=== PATIENT | female | born 1985 | race Two or more races ===

== ENCOUNTER 2020-01-05 15:35 | Inpatient (IN) | payer OTHER ==
[~2020-01-05] VITALS: Ht 157.5 cm; Wt 65.3 kg
[2020-01-05] MEDS ORDERED: PREN-217 PO (16:12)
[2020-01-05 16:26] VITALS: BP 114/63
[2020-01-05] MEDS ORDERED: RINGERS SOLUTION,LACTATED 1,000 ML IV ONE ×2 (17:17→18:33)
[2020-01-05] MEDS ORDERED: RINGERS SOLUTION,LACTATED 1,000 ML IV SCH (18:00)
[2020-01-05] MEDS: RINGERS SOLUTION,LACTATED 1,000 ML IV SCH ×2 (18:03→18:04)
[2020-01-05] MEDS ORDERED: FentaNYL CITRATE-PF 100 MCG/2 ML VIAL ONE (18:38)
[2020-01-05] MEDS ORDERED: MORPHINE SULFATE/PF 0.5 MG/ML 10 ML AMP ONE (18:39)
[2020-01-05] MEDS ORDERED: BUPIVACAINE HCL/DEX-WATER/PF 0.75% 2 ML AMP ONE (18:39)
[2020-01-05] MEDS ORDERED: ACETAMINOPHEN 1000 MG/ISO-OSM 100 ML IV ONE (18:39)
[2020-01-05] MEDS ORDERED: METOCLOPRAMIDE HCL 5 MG/ML 2 ML VIAL IVP ONE (18:45)
[2020-01-05] MEDS ORDERED: CITRIC ACID/SODIUM CITRATE 30 ML SOLUTION UDCUP PO ONE (18:45)
[2020-01-05 19:08] VITALS: BP 110/61
[2020-01-05 19:13] LABS: BASOPHILS % (AUTO) 0.8 % (0.0-2.0); EOSINOPHILS % (AUTO) 0.1 % (1.0-6.0); LYMPHOCYTES # (AUTO) 2.5 K/uL (1.0-4.8); LYMPHOCYTES % (AUTO) 23.2 % (22.0-44.0); MEAN CORPUSCULAR HEMOGLOBIN 24.7 pg (26.0-34.0); MEAN CORPUSCULAR HGB CONC 32.3 G/dL (31.0-37.0); MEAN CORPUSCULAR VOLUME 77 fL (80-100); MONOCYTES # (AUTO) 0.6 K/uL (0.1-1.0); MONOCYTES % (AUTO) 5.9 % (2.0-9.0); NEUTROPHILS # (AUTO) 7.4 K/uL (1.8-7.7); PLATELET COUNT (AUTO)-OB 341 K/uL (150-450); RED BLOOD CELL COUNT(AUTO) 4.44 MIL/uL (4.00-5.20); RED CELL DISTRIBUTION WIDTH 16.8 % (11.5-14.5)
[2020-01-05] MEDS ORDERED: DiphenhydrAMINE HCL 50 MG/ML VIAL IVP PRN ×2 (20:00→20:15)
[2020-01-05] MEDS ORDERED: OXYGEN THERAPY IH SCH (20:00)
[2020-01-05] MEDS ORDERED: ONDANSETRON HCL 4 MG/2 ML VIAL IVP PRN ×2 (20:00→20:15)
[2020-01-05] MEDS ORDERED: DEXAMETHASONE SOD PHOS 4 MG/ML VIAL IVP PRN (20:00)
[2020-01-05] MEDS ORDERED: MORPHINE SULFATE 10 MG/ML SYRINGE IVP PRN (20:15)
[2020-01-05] MEDS ORDERED: FentaNYL CITRATE-PF 100 MCG/2 ML VIAL IVP PRN (20:15)
[2020-01-05] MEDS ORDERED: NALOXONE HCL 0.4 MG/ML VIAL IVP PRN (20:15)
[2020-01-05] MEDS ORDERED: GUM MASTIC/STORAX/MSAL/ALCOHOL LIQUID 0.67 ML VIAL TP ONE (20:28)
[2020-01-05] MEDS ORDERED: LANOLIN 7 GM OINTMENT TP PRN (23:30)
[2020-01-06] MEDS: RINGERS SOLUTION,LACTATED 1,000 ML IV SCH ×2 (03:20→12:20)
[2020-01-06] MEDS: ACETAMINOPHEN 1000 MG/ISO-OSM 100 ML IV SCH ×2 (03:21→09:20)
[2020-01-06] MEDS ORDERED: OXYTOCIN 10 UNITS/ML VIAL IM ONE (05:44)
[2020-01-06] MEDS ORDERED: ONDANSETRON HCL 4 MG/2 ML VIAL IVP ONE (05:44)
[2020-01-06] MEDS ORDERED: 0.9% SODIUM CHLORIDE 10 ML VIAL IVP ONE (05:44)
[2020-01-06] MEDS ORDERED: EPHEDrine SULFATE 50 MG/ML VIAL IM ONE (05:44)
[2020-01-06 07:01] LABS: BASOPHILS % (AUTO) 0.2 % (0.0-2.0); EOSINOPHILS % (AUTO) 0.2 % (1.0-6.0); HEMATOCRIT 28.4 % (36-46); HEMOGLOBIN 9.4 g/dL (12.0-16.0); LYMPHOCYTES # (AUTO) 1.9 K/uL (1.0-4.8); LYMPHOCYTES % (AUTO) 18.8 % (22.0-44.0); MEAN CORPUSCULAR HEMOGLOBIN 25.3 pg (26.0-34.0); MEAN CORPUSCULAR VOLUME 77 fL (80-100); MONOCYTES # (AUTO) 0.7 K/uL (0.1-1.0); MONOCYTES % (AUTO) 6.4 % (2.0-9.0); NEUTROPHILS # (AUTO) 7.7 K/uL (1.8-7.7); NEUTROPHILS % (AUTO) 74.4 % (40.0-70.0); PLATELET COUNT (AUTO)-OB 256 K/uL (150-450); RED CELL DISTRIBUTION WIDTH 16.9 % (11.5-14.5)
[2020-01-06] MEDS ORDERED: OXYGEN THERAPY IH SCH ×2 (08:00)
[2020-01-06] MEDS: MAGNESIUM HYDROXIDE SUSPENSION 30 ML UDCUP PO SCH ×2 (12:53→22:48)
[2020-01-06] MEDS: IBUPROFEN 800 MG TABLET PO PRN ×2 (17:22→23:58)
[2020-01-06] MEDS ORDERED: OxyCODONE HCL/ACETAMINOPHEN 5-325 MG TABLET PO PRN ×2 (20:00)
[2020-01-07] MEDS ORDERED: IBUP-2070 PO (11:46)
[2020-01-07] MEDS ORDERED: DOCU-275 PO (11:50)
[2020-01-07] MEDS ORDERED: HYDR-4455 PO (11:55)
[2020-01-07] MEDS: IBUPROFEN 800 MG TABLET PO PRN (14:02)
== END 2020-01-07 16:45 | disposition home or self-care (01) | DRG 785 ==
LOC: 4S 15:35 → OBSVTOIN 15:35 → 4S 22:50
PROVIDERS: ADMIT Obstetrics & Gynecology; ATTEND Obstetrics & Gynecology
PROC: 10D00Z1 Extraction of Products of Conception, Low, Open Approach (ICD-10-PCS; principal; 2020-01-05)
PROC: 0UT70ZZ Resection of Bilateral Fallopian Tubes, Open Approach (ICD-10-PCS; 2020-01-05)
DX: O34.211 Maternal care for low transverse scar from previous cesarean delivery (principal); Z3A.37 37 weeks gestation of pregnancy; Z37.0 Single live birth; Z30.2 Encounter for sterilization
CPT/HCPCS: 76811; 86850; 86900; 86901; 86923; 87081; 87426; 88302; J0131; J0690; J2274; J2405; J2590; J2765; J3010; J3490; J7120